=== PATIENT | male | born 1990 | race Caucasian/White ===

== ENCOUNTER → 2017-06-25 | Outpatient (CLI) | payer BC ==
[~2017-06-25] MED LIST: CEFADROXIL PO; DURICEF PO; LEVSIN0.125 M1 PO; LORTAB 7.5/5001 TAB; LORTAB 7.5/5001 TAB PO; NO HOME MEDICATIONS; NORCO 325 MG-51 TAB PO
[2017-06-25 16:13] LABS: HEMATOCRIT 48.6 % (42.0-52.0); HEMOGLOBIN 16.9 g/dl (13.5-18.0); MEAN CELL VOLUME 90 fl (80.0-100.0); MEAN CORPUSCULAR HEMOGLOBIN 31 pg (27.0-31.0); MEAN CORPUSCULAR HGB CONC 35 g/dl (33.0-37.0); MEAN PLATELET VOLUME 10.4 fl (7.4-10.4); PLATELET COUNT 224 K/mm3 (130-400); RED BLOOD COUNT 5.38 M/mm3 (4.20-5.60); WHITE BLOOD COUNT 9.2 K/mm3 (4.8-10.8)
[2017-06-25 16:23] LABS: URIC ACID 6.6 mg/dL (3.5-8.5)
[2017-06-25 16:26] LABS: C-REACTIVE PROTEIN < 0.5 mg/dL (0.0-0.9)
[2017-06-25 16:37] LABS: ERYTHROCYTE SEDIMENTATION RATE 2 mm/hr (0-15)
== END ==
LOC: COL.LAB 15:35
PROVIDERS: Orthopaedic Surgery
DX: M79.89 Other specified soft tissue disorders (principal)

== ENCOUNTER 2017-11-09 08:12 | Emergency (ER) | payer BC ==
[~2017-11-09] VITALS: Ht 190.5 cm; Wt 125.0 kg
[2017-11-09 08:14] VITALS: BP 133/69; PULSE 65; TEMP 97.7
== END 2017-11-09 10:09 | disposition home or self-care (01) ==
LOC: COL.ER 08:12
DX: S61.216A Laceration without foreign body of right little finger without damage to nail, initial encounter (principal); W23.1XXA Caught, crushed, jammed, or pinched between stationary objects, initial encounter

== ENCOUNTER 2017-11-18 09:23 | Emergency (ER) | payer BC ==
[2017-11-18 09:26] VITALS: BP 139/80; PULSE 62; TEMP 98.2
== END 2017-11-18 09:31 | disposition home or self-care (01) ==
LOC: COL.ER 09:23
DX: S61.216D Laceration without foreign body of right little finger without damage to nail, subsequent encounter (principal); X58.XXXD Exposure to other specified factors, subsequent encounter

== ENCOUNTER → 2017-12-22 | Outpatient (CLI) | payer BC | LOC: ZCOL.LAB 16:13 | DX: Z01.89 Encounter for other specified special examinations (principal) ==